=== PATIENT | female | born 2000 | race Caucasian/White ===

== ENCOUNTER 2021-07-25 11:43 | Outpatient (CLI) | payer OTHER | END 2021-07-25 11:49 | disposition home or self-care (01) | LOC: LAB 11:43 | PROVIDERS: ATTEND Obstetrics & Gynecology | DX: O09.73 Supervision of high risk pregnancy due to social problems, third trimester (principal) ==

== ENCOUNTER 2021-08-06 13:45 | Inpatient (IN) | payer OTHER ==
[~2021-08-06] VITALS: Ht 160 cm; Wt 65.3 kg
[2021-08-23] MEDS ORDERED: COMPLETE NATAL1 EACH PO (08:09)
== END 2021-08-25 14:04 | disposition home or self-care (01) | DRG 807 ==
LOC: LDR 08-23 06:31 → OB/GYN 08-24 14:50
PROVIDERS: ADMIT Obstetrics & Gynecology; ATTEND Obstetrics & Gynecology
PROC: 10E0XZZ Delivery of Products of Conception, External Approach (ICD-10-PCS; principal; 2021-08-23)
PROC: 0W8NXZZ Division of Female Perineum, External Approach (ICD-10-PCS; 2021-08-23)
PROC: 4A1HXCZ Monitoring of Products of Conception, Cardiac Rate, External Approach (ICD-10-PCS; 2021-08-23)
DX: O80 Encounter for full-term uncomplicated delivery (principal); Z37.0 Single live birth; Z3A.39 39 weeks gestation of pregnancy; Z20.822 Contact with and (suspected) exposure to COVID-19